=== PATIENT | male | born 1995 | race Caucasian/White ===

== ENCOUNTER 2023-06-09 05:56 | Observation (INO) ==
--- NOTE | 2023-06-03 08:26 | Anesthesiology Consultation ---
Date of Service June 03, 2023 Assessment & Plan (1) Encounter for pre-operative examination: Chart Review Chart Review: Acceptable Risk for Surgery (pending review of anesthesia records (if available) and DOS PRP/EKG) and Patient NOT seen in Pre Admission Testing - Discussed with Dr. 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 Please attempt to get anesthesia records from spinal fusion done at [facility] in 2019 (if unable to get records- will have airway assessed DOS) - Check PRP (due to meds) and EKG (due to HTN) DOS -Infectious Disease screening: Per PAT nursing assessment on 06/02/23. No known infectious disease contacts in past 10 days or current infectious disease symptoms. No recent travel outside the country. History Surgery Operation Date: 06/09/23 07:30 Proposed Procedures p Implantation of Intrathecal Pain Pump and Catheter System - Gregory Hansen MD, [facility]IP[facility] Height/Weight Height: 5 ft 4 in Weight: 79.379 kg Allergies Allergy/AdvReac Type Severity Reaction Status Date / Time Penicillins Allergy Difficulty Verified 06/02/23 15:43 Breathing/Rash Medications Home Medications Medication Instructions Recorded Confirmed Last Taken acetaminophen 500 mg tablet 500 mg PO Q6H PRN Pain 07/17/21 06/02/23 04/03/23 (Tylenol Extra Strength) albuterol sulfate 90 mcg/actuation 1 puff inhalation Q4H PRN 07/17/21 06/02/23 1 06/04/22 aerosol inhaler shortness of breath or wheezing fluticasone furoate 100 1 inh inhalation QAM 07/17/21 06/02/23 04/06/23 mcg-vilanterol 25 mcg/dose inhalation powder (Breo Ellipta) fluticasone propionate 50 1 spray intranasal DAILY PRN nasal 07/17/21 06/02/23 Unknown mcg/actuation nasal congestion spray,suspension ibuprofen 200 mg tablet 600 mg PO Q8H PRN Pain 07/17/21 06/02/23 04/05/23 20:00 lisinopril 20 mg tablet 20 mg PO QAM 07/17/21 06/02/23 04/06/23 08:00 loratadine 10 mg tablet (Claritin) 10 mg PO QPM 07/17/21 06/02/23 Unknown pantoprazole 40 mg tablet,delayed 40 mg PO QAM 07/17/21 06/02/23 Unknown release (Protonix) famotidine 20 mg tablet (Pepcid) 20 mg PO QAM PRN gerd 08/19/21 06/02/23 04/06/23 20:00 baclofen 10 mg tablet 10 mg PO BID #180 tabs 02/23/23 06/02/23 Unknown hydrocodone 5 mg-acetaminophen 325 1 tab PO DAILY PRN Pain 06/02/23 06/02/23 Unknown mg tablet Past Medical History Medical History Acid reflux Asthma uses PRN inh once weekly on average Congenital scoliosis GERD (gastroesophageal reflux disease) History of anesthesia reaction urinary retention following spinal fusion Hypertension Intellectual disability Lumbar back pain Lumbar radicular pain Seasonal allergies Social anxiety disorder 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 Other No family history of adverse response to anesthesia Past Surgical History Surgical History H/O spinal fusion March 2019 T9-L3 History of colonoscopy History of esophagogastroduodenoscopy (EGD) History of placement of ear tubes Social History Smoking Status: Never smoker Do You Dip or Chew Tobacco: No Hx Alcohol Use: Yes alcohol intake frequency: holidays/special occasions only Hx Substance Use: No substance use type: does not use Testing Laboratory Results 05/28/23= WBC: 5.5 H/H: 15.4/45.4 PLATELETS: 298 UA: Negative URINE CULTURE: No growth after two days
--- NOTE | 2023-06-04 08:38 | History & Physical Report ---
Date of Service June 04, 2023 Assessment & Plan (1) Thoracolumbar back pain: (2) Postlaminectomy syndrome, thoracic: Plan As the patient does report significant pain relief from the trial with a single intrathecal shot of Hydromorphone it is recommended that he proceed with the implantation of an intrathecal pump and catheter delivery system. Risks and benefits have been reviewed in detail with the patient and mother. Surgical procedure has been explained and all their questions have been answered. Patient would like to proceed with the procedure. Procedure is scheduled for 06/09/23. History of Present Illness Chief Complaint: Post laminectomy syndrome, thoracic back pain Primary Care Provider: THOMAS Cazares This is a 28 year old male that has a significant history of prior surgical fusion surgery from T9-L3 for scoliosis repair resulting in chronic thoracic back pain. He describes an aching and soreness sensation along the left thoracic spin and into the left flank. Pain is rated 7/10 at its best and 9/10 at its worst. Reporting significant limitation into performing his daily activities. Patient has previously tried interventional procedures including trigger point injections, thoracic medial branch blocks and subsequent radiofrequency ablations without sustained pain relief. Medications tried include Baclofen, Tramadol, Hydrocodone, Nucynta, and Hydromorphone. Spinal cord stimulator trial was performed and did not provide significant pain relief. A trial with a single intrathecal shot of Hydromorphone provided approximately 8 hours of significant pain relief. Allergies Allergy/AdvReac Type Severity Reaction Status Date / Time Penicillins Allergy Difficulty Verified 06/02/23 15:43 Breathing/Rash Home Medications Medication Instructions Recorded Confirmed Type acetaminophen 500 mg tablet 500 mg PO Q6H PRN Pain 07/17/21 06/02/23 History (Tylenol Extra Strength) albuterol sulfate 90 mcg/actuation 1 puff inhalation Q4H PRN 07/17/21 06/02/23 History aerosol inhaler shortness of breath or wheezing fluticasone furoate 100 1 inh inhalation QAM 07/17/21 06/02/23 History mcg-vilanterol 25 mcg/dose inhalation powder (Breo Ellipta) fluticasone propionate 50 1 spray intranasal DAILY PRN nasal 07/17/21 06/02/23 History mcg/actuation nasal congestion spray,suspension ibuprofen 200 mg tablet 600 mg PO Q8H PRN Pain 07/17/21 06/02/23 History lisinopril 20 mg tablet 20 mg PO QAM 07/17/21 06/02/23 History loratadine 10 mg tablet (Claritin) 10 mg PO QPM 07/17/21 06/02/23 History pantoprazole 40 mg tablet,delayed 40 mg PO QAM 07/17/21 06/02/23 History release (Protonix) famotidine 20 mg tablet (Pepcid) 20 mg PO QAM PRN gerd 08/19/21 06/02/23 History baclofen 10 mg tablet 10 mg PO BID #180 tabs 02/23/23 06/02/23 Rx hydrocodone 5 mg-acetaminophen 325 1 tab PO DAILY PRN Pain 06/02/23 06/02/23 History mg tablet Past Med/Surg History Medical History 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 Other No family history of adverse response to anesthesia Social History Smoking Status: Never smoker Second Hand Exposure: No; Do You Dip or Chew Tobacco: No; Hx Alcohol Use: Yes Hx Substance Use: No Preferred Language: Stateless Communication Ability: Impaired Facility Service Associate Required: No Beliefs That Will Affect Care: None marital status: Single Current Living Situation: Parent Current Living Situation Comment: lives with cousin current occupational status: disabled How many Children do You have: 0 Assistive Devices: None Review of Systems Review of Systems: All systems reviewed & are unremarkable except as noted in HPI & below Physical Exam Physical Exam: GENERAL: Speech and cognition is intact. Mood and affect is appropriate. In no acute distress. HEAD: Normocephalic; atraumatic. EYES: No conjunctival injection. EOM intact. ENT: No external ear discharge or lesions. No rhinorrhea or epistaxis. Moist oral mucosa. NECK: Full ROM; trachea is midline; no TTP; no cervical lymphadenopathy. CARDIO: Regular rate and rhythm. No murmurs, rubs, or gallops. PULM: Clear to auscultation. No wheezes, rales, or rhonchi. CHEST: Regular chest respiration and excursion. ABDOMEN: Nondistended. EXTREMITIES: Full ROM and +5 strength of upper and lower extremities. No TTP. Distal sensation and pulses intact bilaterally. BACK: Large well-healed surgical incision along the thoracic midline. There is focal tenderness along the left paravertebral musculature along the lower thoracic region. No midline tenderness. NEURO: CN II-XII grossly intact with no focal deficits noted. Normal gait. SKIN: No lesions, erythema, or rashes noted.
[2023-06-09] MEDS: LACTATED RINGER'S 1,000 ML IV SCH (06:26)
[2023-06-09] MEDS ORDERED: LIDOCAINE 2% 2 ML VIAL/AMP(20MG/ML) INFIL ONE (06:44)
[2023-06-09] MEDS ORDERED: ROCURONIUM BROMIDE 10 MG/ML 5 ML VIAL IV ONE (06:44)
[2023-06-09] MEDS ORDERED: PROPOFOL IV EMULSION 10 MG/ML 20 ML VIAL IV ONE (06:44)
[2023-06-09] MEDS ORDERED: ONDANSETRON INJ 2 MG/ML 2 ML VIAL ONE (06:44)
[2023-06-09] MEDS ORDERED: fentaNYL citrate PF 100 MCG/2 ML VIAL ONE ×2 (06:45→08:47)
[2023-06-09] MEDS ORDERED: MIDAZOLAM HCL 1 MG/ML 2ML VIAL ONE (06:45)
[2023-06-09 06:50] LABS: Calcium 9.6 mg/dl (8.6-10.3); Creatinine Clr Calc Pharmacy 125.3 ml/min; Est GFR (African American) 141.5 ml/min; Potassium 3.8 mmol/L (3.5-5.1)
--- NOTE | 2023-06-09 06:57 | History & Physical Bridge Note ---
Date of Service June 09, 2023 History & Physical Bridge Note History & Physical Bridge Note Mike Weiner a 28year-old male with a history of thoracic postlaminectomy syndrome after extensive laminectomy and instrumentation for scoliosis. He experiences significant thoracic pain and difficulty performing minimal activities required for daily living. He has failed conservative measures such as physical therapy, interventional procedures, bowel or bladder analgesics, adjuvant medications, as well as opiate analgesics. He underwent successful hydromorphone trial intrathecally with good efficacy lasting a duration. He has been offered implantation of intrathecal delivery system with infusion of hydromorphone. Patient is scheduled today for this procedure. Patient's past medical history, surgical history, medication and allergy list has been reviewed and no changes noted since his last history and physical examination performed. Review of systems is negative for any cardiac, pulmonary, GI, , endocrine or acute neurological complaints other than what is listed in the HPI section. Physical exam: GENERAL: Patient appears his stated age. Speech and cognition is intact. Mood and affect is appropriate. Sensorium is clear. He is in no acute distress. HEAD: Normocephalic; atraumatic. EYES: Pupils are round and equal. Mucous membranes moist and pink. No oral lesions noted. ENT: No external ear discharge or lesions. No rhinorrhea or epistaxis. No mucosal lesions. NECK: Full ROM. Trachea is midline. No thyromegaly. No cervical lymphadenopathy. Carotids without bruit. CARDIAC: Regular rate and rhythm. No murmur or gallops noted. CHEST: Regular chest respiration and excursion. Lungs are clear to auscultation. ABDOMEN: No organomegaly appreciated. Bowel sounds are normal. EXTREMITIES: Full ROM and +5 strength of bilateral lower extremities. Distal sensation and pulses intact bilaterally. BACK: Surgical scar extending from mid thoracic to lower lumbar region with decreased range of motion. Mild thoracic kyphosis NEURO: Sensation and motor strength testing is unremarkable. SKIN: No lesions, erythema, or rashes noted. ASSESSMENT: Thoracic postlaminectomy syndrome. Status post thoracolumbar spine surgery with extensive instrumentation for scoliosis. RECOMMENDATIONS: Mike has been offered intrathecal delivery system implantation with infusion of hydromorphone to manage his chronic, severe pain. History reviewed, examination performed, pertinent laboratory and imaging studies reviewed. No contraindications noted to proceeding with the proposed procedure. Potential risks including infection, bleeding, spinal or epidural hematoma, nerve injury, persistent back pain, injury to the spinal cord, dural puncture with persistent cerebrospinal fluid leak, post dural puncture headache which may require additional interventional procedures to treat were discussed with the patient in detail. Also, potential explantation of the entire system for infection also reviewed. Alternative treatments were also discussed. Patient's questions were answered and gives informed consent to proceed with the proposed procedure.no contraindications noted to proceed.
[2023-06-09] MEDS ORDERED: PROMETHAZINE HCL 6.25 MG in SODIUM CHLORIDE 0.9% 50 ML IV PRN (07:18)
[2023-06-09] MEDS ORDERED: ATROPINE SULFATE 0.1 MG/ML 10ML SYR IV PRN (07:18)
[2023-06-09] MEDS ORDERED: ePHEDrine sulfate 50 MG/ML AMP IV PRN (07:18)
[2023-06-09] MEDS ORDERED: ONDANSETRON INJ 2 MG/ML 2 ML VIAL IV PRN (07:18)
[2023-06-09] MEDS ORDERED: HYDROmorphone INJ 1 MG/ML SYRINGE IV PRN (07:18)
[2023-06-09] MEDS: CLINDA 900 MG **Premixed Bag IV SCH (07:28)
[2023-06-09] MEDS ORDERED: DEXAMETHASONE SOD INJ 4 MG/ML VIAL ONE (08:12)
[2023-06-09] MEDS ORDERED: MAG SULFATE 50% 1GM/2ML VIAL IV ONE (08:21)
[2023-06-09] MEDS ORDERED: PHENYLEPHRINE 100MCG/ML 10ML SYR IV ONE (08:28)
[2023-06-09] MEDS: HYDROmorphone PAIN PUMP--Supplied by Pain Clinic IT SCH (09:32)
[2023-06-09] MEDS: LIDOCAINE 2%/EPINEPHRINE 1:100,000 20ML INFIL ONE (09:33)
[2023-06-09] MEDS ORDERED: SUGAMMADEX SODIUM 200 MG/2 ML VIAL IV ONE (09:40)
[2023-06-09] MEDS ORDERED: NALOXONE HCL 0.4 MG/1 ML VIAL/CARP IV PRN (10:21)
[2023-06-09] MEDS: fentaNYL citrate PF 100 MCG/2 ML VIAL IV PRN (11:12)
--- NOTE | 2023-06-09 11:26 | Electrocardiogram Report ---
Test Reason : Blood Pressure : / mmHG Vent. Rate : 074 BPM Atrial Rate : 074 BPM P-R Int : 150 ms QRS Dur : 084 ms QT Int : 362 ms P-R-T Axes : 027 063 040 degrees QTc Int : 401 ms Normal sinus rhythm Normal ECG No previous ECGs available Confirmed by Stanley Moya ([id number]) on 06/09/2023 11:25:43 AM Referred By: Gregory Hansen Confirmed By:Stanley Moya
[2023-06-09] MEDS ORDERED: FLUTICASONE PROPIONATE NA SPR 16 GM BTL PRN (12:30)
[2023-06-09] MEDS ORDERED: ALBUTEROL HFA 8 GM INHALER INH PRN (12:30)
[2023-06-09] MEDS ORDERED: FAMOTIDINE 20 MG TAB PO PRN (12:30)
[2023-06-09] MEDS ORDERED: ZOLPIDEM TARTRATE 5 MG TAB PO PRN (12:30)
[2023-06-09] MEDS ORDERED: HYDROCODONE/ACETAMOPHEN 5/325MG TAB PO PRN (12:30)
--- NOTE | 2023-06-09 14:33 | Anesthesiology Progress Note ---
Date of Service June 09, 2023 Anesthesia Post Procedure Vital Signs Vital Signs: Temp Pulse Pulse Pulse Resp BP BP 06/09/23 14:20 36.7 C 92 H 18 109/71 06/09/23 13:56 84 06/09/23 13:20 37.0 C 91 H 16 126/77 06/09/23 12:50 36.9 C 91 H 16 120/74 06/09/23 12:20 36.7 C 94 H 16 120/75 06/09/23 11:55 85 23 118/66 06/09/23 11:40 85 15 116/72 06/09/23 11:25 85 17 118/69 06/09/23 11:15 77 20 116/68 06/09/23 11:05 36.1 C L 79 19 113/70 06/09/23 10:55 78 20 116/69 06/09/23 10:45 79 22 117/71 06/09/23 10:35 99 H 20 114/77 06/09/23 10:25 36.1 C L 100 H 19 126/74 06/09/23 06:15 36.6 C 92 H 20 143/79 H Pulse Ox O2 Del Method O2 Flow Rate 06/09/23 14:20 97 Room Air 06/09/23 13:56 06/09/23 13:20 98 Room Air 06/09/23 12:50 97 Room Air 06/09/23 12:20 97 Room Air 06/09/23 11:55 96 Room Air 06/09/23 11:40 98 Room Air 06/09/23 11:25 97 Room Air 06/09/23 11:15 96 Room Air 06/09/23 11:05 96 Room Air 06/09/23 10:55 95 Room Air 06/09/23 10:45 98 Oxymask 3 06/09/23 10:35 99 Oxymask 3 06/09/23 10:25 99 Oxymask 6 06/09/23 06:15 97 Room Air Pain Intensity Medial Back: Pain Intensity: 5 Transfer of Care Handoff Completed per policy Notes Mental Status: alert / awake / arousable and participated in evaluation Patient Amnestic to Procedure: Yes Nausea / Vomiting: adequately controlled Pain: adequately controlled Airway Patency, RR, SpO2: stable & adequate BP & HR: stable & adequate Hydration State: stable & adequate Anesthetic Complications: no major complications apparent and Pt Satisfied with anesthetic care
[2023-06-09] MEDS: LORATADINE 10 MG TAB PO SCH (21:11)
[2023-06-09] MEDS: CLINDAMYCIN/D5W 900 MG/50 ML BAG IV ONE (21:11)
[2023-06-09] MEDS: BACLOFEN 10 MG TAB PO SCH (21:11)
--- NOTE | 2023-06-10 08:37 | Pain Management Progress Note ---
Date of Service June 10, 2023 Assessment & Plan (1) Thoracolumbar back pain: (2) Postlaminectomy syndrome, thoracic: Plan Pain seems well controlled so no dose adjustments were made. Dressing change was made to the left flank. Encouraged the patient to try to void so that he may be discharged to home hopefully today. He will wear abdominal binder 24/ x 4 weeks, then during activity x 4 weeks. Post op appointments have been made scheduled for 06/16/2023 at 1330 and 06/25/2023 at 11 AM. Admission and Anticipated Discharge Date Admission Date: June 09, 2023 Subjective Post op intrathecal pump and catheter delivery system containing Hydromorphone. Overnight he was able to sleep well. Was not able to void last evening and required straight catheterization and 700 cc's was removed. He states that he has previously had difficulty with urinating after his back surgery and also with the prior Hydromorphone trial. He does not feel any current pressure in the suprapubic region. No headache, dizziness, pain, fever. Has not yet had a bowel movement. Has not required the use of [place] since surgery. Case discussed with Dr. Hansen Physical Exam Physical Exam: GENERAL: This is a 28 year old male accompanied by his mother, in no acute distress. HEAD/FACE: Normocephalic and atraumatic. EYES: No drainage or conjunctival injection. ENT: Nose without bleeding or discharge. Oral mucosa moist. NECK: Full ROM without apparent pain. No swelling or masses noted. RESPIRATORY: Patient with unlabored breathing. No signs of respiratory distress. CHEST/AXILLA: Chest movement symmetrical. No deformities noted. ABDOMEN/GI: + abdominal binder present. No mobility or tenderness of the intrathecal pump in the LLQ. BACK: Moves without difficulty SKIN: Aquacel on the left lower abdomen and thoracolumbar region. There is a suture in the left flank - bandage changed. No incision erythema, warmth, or drainage noted. MS/EXTREMITY: No swelling, no deformities. Moving extremities appropriately. PSYCH: Alert, pleasant, flat affect.
[2023-06-10] MEDS: PANTOprazole 40 MG TAB PO SCH (08:39)
[2023-06-10] MEDS: lisinopril 20 MG TAB PO SCH (08:39)
[2023-06-10] MEDS: FLUTICASONE/VILANTEROL 100/25MCG 14 PUFFS/INHALER INH SCH (08:39)
[2023-06-10] MEDS: diphenhydrAMINE 50 MG/ML VIAL IV PRN (15:41)
[2023-06-10] MEDS: NALTREXONE HCL 50 MG TAB PO ONE ×2 (15:42→15:45)
[2023-06-10] MEDS: ACETAMINOPHEN 500 MG TAB PO PRN (18:48)
[2023-06-10] MEDS ORDERED: ONDANSETRON INJ 2 MG/ML 2 ML VIAL IV PRN (19:14)
[2023-06-10] MEDS: dexAMETHasone 4 MG TAB PO SCH (20:10)
--- NOTE | 2023-06-11 08:38 | Pain Management Progress Note ---
Date of Service June 11, 2023 Assessment & Plan (1) Thoracolumbar back pain: (2) Postlaminectomy syndrome, thoracic: Plan Intrathecal dosage will remain at minimal rate. Dressing change was made to the left flank. Change daily. He will wear abdominal binder 01/12 x 4 weeks, then during activity x 4 weeks. Post op appointments have been made scheduled for 06/16/2023 at 1330 and 06/25/2023 at 11 AM. As the patient's allergic reaction has improved, he is able to void, and headache has improved - discussed with Dr. Hansen that we do feel safe to discharge to home. Narcan prescription has been sent to his pharmacy in case of overdose symptoms. I will send home a small Decadron prescription and he has been instructed to take Benadryl in case of rash and itching returns. Admission and Anticipated Discharge Date Admission Date: June 11/2024 Subjective Post op intrathecal pump and catheter delivery system containing Hydromorphone. Yesterday afternoon he developed a rash on his arms and face and states that the rash was pruritic. Possible allergic reaction to Hydromorphone so the dose was decreased to minimal rate and he was given IV Benadryl and PO Decadron. Rash has improved significantly. He states that his pain is still well controlled and rates his pain 0/10 currently. Last evening he developed dizziness and headache and vomiting a few times. I encouraged caffeinated drinks and increase water intake throughout the evening as symptoms were likely from a post dural spinal leak. He states that the dizziness, nausea, and vomiting has resolved. There is a mild headache behind the eyes which is slightly positional but also has it laying supine. He has been able to void last evening and this morning. Has not required the use of [place] since surgery. No fevers, chills, incisional pain, cough/bladder incontinence, saddle anesthesia, extremity weakness. Case discussed with Dr. Hansen Physical Exam Physical Exam: GENERAL: This is a 28 year old male in no acute distress. He was able to walk around the hospital room without any worsening of headache and did not require any assistance. HEAD/FACE: Normocephalic and atraumatic. EYES: No drainage or conjunctival injection. No nystagmus noted. ENT: Nose without bleeding or discharge. Oral mucosa moist. NECK: Full ROM without apparent pain. No swelling or masses noted. RESPIRATORY: Patient with unlabored breathing. No signs of respiratory distress. CHEST/AXILLA: Chest movement symmetrical. No deformities noted. ABDOMEN/GI: + abdominal binder present. No mobility or tenderness of the intrathecal pump in the LLQ. BACK: Moves without difficulty SKIN: Aquacel on the left lower abdomen and thoracolumbar region. There is a suture in the left flank - bandage changed. No incision erythema, warmth, or drainage noted. MS/EXTREMITY: No swelling, no deformities. Moving extremities appropriately. PSYCH: Alert, pleasant, flat affect.
--- NOTE | 2023-06-11 08:52 | Discharge Summary ---
Date of Service June 11, 2023 Admission HPI Per Admitting Provider This is a 28 year old male that has a significant history of prior surgical fusion surgery from T9-L3 for scoliosis repair resulting in chronic thoracic back pain. He describes an aching and soreness sensation along the left thoracic spin and into the left flank. Pain is rated 7/10 at its best and 9/10 at its worst. Reporting significant limitation into performing his daily activities. Patient has previously tried interventional procedures including trigger point injections, thoracic medial branch blocks and subsequent radiofrequency ablations without sustained pain relief. Medications tried include Baclofen, Tramadol, Hydrocodone, Nucynta, and Hydromorphone. Spinal cord stimulator trial was performed and did not provide significant pain relief. A trial with a single intrathecal shot of Hydromorphone provided approximately 8 hours of significant pain relief. Admission Exam (Per Admitting) Constitutional GENERAL: Speech and cognition is intact. Mood and affect is appropriate. In no acute distress. HEAD: Normocephalic; atraumatic. EYES: No conjunctival injection. EOM intact. ENT: No external ear discharge or lesions. No rhinorrhea or epistaxis. Moist oral mucosa. NECK: Full ROM; trachea is midline; no TTP; no cervical lymphadenopathy. CARDIO: Regular rate and rhythm. No murmurs, rubs, or gallops. PULM: Clear to auscultation. No wheezes, rales, or rhonchi. CHEST: Regular chest respiration and excursion. ABDOMEN: Nondistended. EXTREMITIES: Full ROM and +5 strength of upper and lower extremities. No TTP. Distal sensation and pulses intact bilaterally. BACK: Large well-healed surgical incision along the thoracic midline. There is focal tenderness along the left paravertebral musculature along the lower thoracic region. No midline tenderness. NEURO: CN II-XII grossly intact with no focal deficits noted. Normal gait. SKIN: No lesions, erythema, or rashes noted. Discharge Data Procedures Performed Operation Date: 06/09/23 07:30 Actual Procedures p Implantation of Intrathecal Catheter and Medication Administration Pump System with Regular Subsequent Pump Refills (Not Applicable) - Gregory Hansen MD, [facility] Hospital Course (1) Thoracolumbar back pain: (2) Postlaminectomy syndrome, thoracic: Plan Intrathecal dosage will remain at minimal rate. Dressing change was made to the left flank. Change daily. He will wear abdominal binder 01/12 x 4 weeks, then during activity x 4 weeks. Post op appointments have been made scheduled for 06/16/2023 at 1330 and 06/25/2023 at 11 AM. As the patient's allergic reaction has improved, he is able to void, and headache has improved - discussed with Dr. Hansen that we do feel safe to discharge to home. Narcan prescription has been sent to his pharmacy in case of overdose symptoms. I will send home a small Decadron prescription and he has been instructed to take Benadryl in case of rash and itching returns.
--- NOTE | 2023-06-29 07:59 | Operative Report ---
PG Post Operative Report Pre & Post Diagnosis Operation Date: 06/09/23 07:30 Pre-Op Diagnosis: Thoracolumbar back pain; Postlaminectomy syndrome, thoracic Post-Op Diagnosis: Thoracolumbar back pain; Postlaminectomy syndrome, thoracic I identified the patient and participated in the time-out.: Yes Procedure Operation Date: 06/09/23 07:30 Implantation of Intrathecal Catheter and Medication Administration Pump System under fluoroscopic guidance with Regular Subsequent Pump Refills. - Gregory Hansen MD, [facility] Surgeon Gregory Hansen MD, [facility] Maintenance Inspector Unique Munoz Estimated Blood Loss 20 Findings Consistent with Post-Op Diagnosis Specimens None Drains None Anesthesia Type General Complications none Disposition Accompanied Patient To Recovery: No Description of Procedure INTRATHECAL DRUG DELIVERY SYSTEM IMPLANTATION PREOPERATIVE DIAGNOSIS: 1. Chronic postoperative pain \ 2. Thoracolumbar postlaminectomy syndrome POSTOPERATIVE DIAGNOSIS: Same. PROCEDURE: 1. Insertion of intrathecal catheter under fluoroscopic guidance. 2. Implantation of intrathecal pump. 3. Intrathecal pump refill 4. Postoperative analysis and programming of intrathecal pump COMPLICATIONS: None SURGEON: Bishop Hansen MD POND TENDER: UNIQUE MUNOZ PA-C ANESTHESIA: General. DESCRIPTION OF PROCEDURE: The patient had a successful intrathecal trial and agreed to intrathecal pump insertion. Prior to starting, the Patients diagnosis and the procedure were reviewed with the patient in detail. Possible risks and complications including infection, bleeding, damage to surrounding structures and increased pain were discussed. Alternative therapies were also reviewed. Patients questions were answered and they agreed to proceed. Informed consent was obtained. Allergies and medication list was reviewed. Biplanar fluoroscopy was used to assist in placement of the needle as well as to evaluate the final needle and catheter positions. The patient was brought to the operating room and general anesthesia was induced by members of the department. Patient was then placed in right lateral decubitus position. Immediately prior to starting the procedure, a ``time out was conducted with the staff where the patient was identified, proposed procedure was verified, consent was reviewed and the proper site for the planned procedure was identified. Preoperative intravenous antibiotics for prophylaxis were given. On examination, no signs of skin breakdown or infection were noted at the injection site. The site was cleansed with DuraPrep followed by Betadine. Sterile drapes were applied in the usual fashion. Using biplanar fluoroscopy an 18-gauge spinal needle was used to gain access to the intrathecal sac at L3/L4 interspace. Clear free cerebral spinal fluid flow was noted without any blood. Medtronic intrathecal catheter was passed through the needle under fluoroscopic guidance and the tip was positioned at approximately T6 level. Stylet was removed and free CSF flow was aspirated. Using a scalpel, 1-1/2 inch midline incision was made surrounding the intrathecal needle. Hemostasis was achieved using electro cautery. The epidural catheter was secured to the dorso- lumbar fascia with 1 purse string 0-0 silk ties. Then the spinal needle was removed and a PHRQLtronic butterfly anchor to secure the catheter to the underlying supraspinous ligament was utilized to secure the catheter. Free CSF flow from the intrathecal catheter after anchoring of the catheter to the fascia. Then in the left lower quadrant a pocket for the intrathecal pump was made using scalpel to skin incision and electro cautery for the deeper layers. A passer was used to transfer the intrathecal pump catheter underneath the skin and subcutaneous tissues through to the pocket incision. After transfer of the end of the catheter to the pocket incision aspiration of the intrathecal catheter revealed free CSF flow. Both pocket and midline axial thoracic incisions were irrigated with normal saline with Betadine. Hemostasis was achieved. The intrathecal pump was filled was rinsed and filled with hydromorphone 0.5 mg mg/ml per protocol. The suture-less connector was connected to the end the intrathecal pump and aspiration from of the end of the catheter was free-flowing. It was then connected to the intrathecal pump using the connecting device. The intrathecal pump was anchored in the pocket with 4-0 Prolene sutures. No complications were noted after the intrathecal pump was placed inside the pocket. Both wounds were irrigated with bacitracin-containing normal saline. Both wounds were closed in similar fashion using continuous 0 Sratafix suture for deeper layer and running 3-0 Stratafix suture for subcuticular layer. Prineo dressing was applied to the skin. Abdominal binder was placed. No complications were noted throughout the procedure. The patient tolerated the procedure and general anesthesia without obvious complications.. Patient was allowed to emerge from anesthesia at the end of the procedure and transferred back to the stretcher. Patient was transported to the recovery room in stable condition. The patient will follow up with our clinic within 7 days for a wound check and then plan to have the holly removed at day 14. Pump size inserted: 20 ml Level of catheter: T6 Medication placed in pump: Hydromorphone 0.5 mg/ml to run at 0.1 mg/day I attest to the content of the Intraoperative Record and any orders documented therein. Any exceptions are noted below.
== END 2023-06-11 10:50 | disposition home or self-care (01) ==
LOC: 2W 05:56 → ASU 05:56